=== PATIENT | female | born 1960 | race Caucasian/White ===

== ENCOUNTER 2023-12-10 21:36 | Outpatient (REF) | payer OTHER, SELFPAY | END 2023-12-10 21:37 | disposition home or self-care (01) | LOC: NCHCN 21:36 | PROVIDERS: Visit Provider Physician Assistant | DX: N39.0 Urinary tract infection, site not specified (principal); B96.29 Other Escherichia coli [E. coli] as the cause of diseases classified elsewhere | CPT/HCPCS: 87077; 87086; 87186 ==